=== PATIENT | male | born 1995 | race Two or more races ===

== ENCOUNTER 2022-05-09 21:48 | Emergency (ER) | payer SELFPAY ==
[2022-05-09 22:24] LABS: BASOPHILS # (AUTO) 0.1 10^3/uL (0.0-0.1); BASOPHILS % (AUTO) 0.7 %; EOSINOPHILS # (AUTO) 0.2 10^3/uL (0.0-0.7); EOSINOPHILS % (AUTO) 2.7 %; HCT - HEMATOCRIT 42.7 % (42.0-52.0); HGB - HEMOGLOBIN 15.7 g/dL (14.0-18.0); LYMPHOCYTES # (AUTO) 2.8 10^3/uL (1.5-3.5); LYMPHOCYTES % (AUTO) 34.7 %; MEAN CORPUSCULAR HEMOGLOBIN 31.6 pg (27.0-31.0); MEAN CORPUSCULAR HGB CONC 36.8 g/dL (32.0-36.0); MEAN CORPUSCULAR VOLUME 85.9 fL (80.0-94.0); MONOCYTES # (AUTO) 0.8 10^3/uL (0.0-1.0); MONOCYTES % (AUTO) 9.4 %; NEUTROPHILS # (AUTO) 4.2 10^3/uL (1.5-6.6); NEUTROPHILS % (AUTO) 52.3 %; PLT - PLATELET COUNT 230 10^3/uL (130-450); RED BLOOD COUNT 4.97 10^6/uL (4.70-6.10); RED CELL DISTRIBUTION WIDTH 11.9 % (12.0-15.0); WHITE BLOOD COUNT 8.1 x10^3/uL (4.8-10.8)
--- NOTE | 2022-05-09 22:36 | ED Physician Documentation ---
PD HPI ABD PAIN - Stated complaint Stated Complaint: ABD PX - Chief complaint Chief Complaint: Abd Pain - History obtained from History obtained from: Patient - History of Present Illness Timing - onset: How many weeks ago (2) Timing - details: Gradual onset, Waxing and waning Quality: Cramping Location: All over / everywhere Improved by: Other (nothing) Worsened by: Other (no exacerbating factors) Associated symptoms: Constipation. 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 patient c/o 2 weeks of generalized abdominal pain, episodic without apparent inciting, ex acerbating, or ameliorating factors. He feels he is constipated and says he has not had a BM in 2 weeks Review of Systems Constitutional: denies: Fever GI: reports: Abdominal Pain, Constipation. denies: Nausea, Vomiting, Diarrhea : denies: Dysuria Musculoskeletal: denies: Back pain PD PAST MEDICAL HISTORY - Past Medical History Past Medical History: No - Present Medications Home Medications: Ambulatory Orders Medication Instructions Recorded Confirmed Citalopram Hydrobromide [Celexa] 40 mg PO DAILY 05/09/22 05/09/22 Dicyclomine [Bentyl] 10 mg PO QID PRN #20 cap 05/10/22 - Allergies Allergies/Adverse Reactions: Allergies Allergy/AdvReac Type Severity Reaction Status Date / Time No Known Drug Allergies Allergy Verified 05/09/22 22:50 PD ED PE NORMAL - Vitals Vital signs reviewed: Yes - General General: Alert and oriented X 3, No acute distress (mostly NAD during H+P but has brief episodes ,lasting 5-10 seconds, of obvious painful discomfort ), Well developed/nourished - HEENT HEENT: Moist mucous membranes - Neck Neck: Supple, no meningeal sign - Cardiac Cardiac: RRR, No murmur - Respiratory Respiratory: No respiratory distress, Clear bilaterally - Abdomen Abdomen: Normal bowel sounds, Soft, Non distended, Other (mild/moderate TTP epigastrium and periumbilical region with voluntary guarding) - Back Back: No CVA TTP Results - Vitals Vitals: Oxygen O2 Source Room air - Labs Labs: Laboratory Tests 05/09/22 05/09/22 22:17 22:17 WBC 8.1 RBC 4.97 Hgb 15.7 Hct 42.7 MCV 85.9 MCH 31.6 H MCHC 36.8 H RDW 11.9 L Plt Count 230 MPV 10.0 Neut # (Auto) 4.2 Lymph # (Auto) 2.8 Terry # (Auto) 0.8 Eos # (Auto) 0.2 Baso # (Auto) 0.1 Absolute Nucleated RBC 0.00 Nucleated RBC % 0.0 Sodium 136 Potassium 3.6 Chloride 101 Carbon Dioxide 25 Anion Gap 10.0 BUN 20 Creatinine 1.1 Estimated GFR (MDRD) 81 L Glucose 104 H Calcium 9.2 Total Bilirubin 0.2 AST 28 ALT 32 Alkaline Phosphatase 88 Total Protein 7.6 Albumin 4.4 Globulin 3.2 Albumin/Globulin Ratio 1.4 Lipase 34 - Rads (name of study) upright cxr Radiology: Prelim report reviewed, See rad report CT A/P Radiology: Prelim report reviewed, See rad report PD MEDICAL DECISION MAKING - ED course Complexity details: reviewed results, re-evaluated patient, considered differential, d/w patient ED course: presents with episodic abdominal pain x 2 weeks. Unremarkable blood tests results and no concerning nor diagnostic findings on CT A/P. An upright CXR performed initially due to the degree of abdominal tenderness , looking for free air, but this study had no evidence of free air. He is given one liter NS bolus and 1mg IV dilaudid. On reevaluation, he is asleep, awakens to voice, in NAD. Reexamination of abdomen is benign; there is no tenderness on the reexam. He reports resolution of his discomfort. I explained that the cause of his pain is not apparent on tonkavita's tests, and the CT scan does not suggest that he is constipated. He is given a percocet take- home pack and rx bentyl provided. Departure - Departure Disposition: 01 Home, Self Care Clinical Impression: Abdominal pain Qualifiers: Abdominal location: generalized Qualified Code(s): R10.84 - Generalized abdominal pain Condition: Good Instructions: ED Abdominal Pain Unkn Cause Male Follow-Up: Parth Proctor MD [Provider Admit Priv/Credential] - Prescriptions: Dicyclomine [Bentyl] 10 mg PO QID PRN #20 cap PRN Reason: Abdominal Pain Print Language: Belarusian Comments: The results of tonight's tests are normal. The cause of your pain is not apparent at this time. Your CT scan does NOT suggest constipation. You are being provided with a prescription for bentyl ,which is a medication that can help with abdominal cramping/spasms. Please follow up with your doctor. If you do not have a doctor, you can use the information on these discharge sheets to contact the office of Dr. Proctor to arrange an appointment with them. Discharge Date/Time: 05/10/22 01:56
[2022-05-09 22:37] LABS: ALBUMIN 4.4 g/dL (3.2-5.5); ALBUMIN/GLOBULIN RATIO 1.4 (1.0-2.2); BILIRUBIN,TOTAL 0.2 mg/dL (0.2-1.0); CALCIUM 9.2 mg/dL (8.5-10.3); CREATININE 1.1 mg/dL (0.6-1.2); POTASSIUM 3.6 mmol/L (3.5-5.0); TOTAL PROTEIN 7.6 g/dL (6.7-8.2)
[2022-05-09] MEDS ORDERED: HYDROmorphone 1 MG/ML CARPUJECT IVP STA (22:37)
[2022-05-09] MEDS ORDERED: SODIUM CHLORIDE 0.9% 1,000 ML IV STA (22:37)
--- NOTE | 2022-05-09 23:11 | XRAY Report ---
PROCEDURE: Chest 1 View X-Ray INDICATIONS: abd. pain, peritoneal signs TECHNIQUE: One view of the chest was acquired. COMPARISON: None. FINDINGS: Surgical changes and devices: None. Lungs and pleura: No pleural effusions or pneumothorax. Lungs are clear. Mediastinum: Mediastinal contours appear normal. Heart size is normal. Bones and chest wall: No suspicious bony lesions. Overlying soft tissues appear unremarkable. IMPRESSION: 1. No acute cardiopulmonary disease. Reviewed by: Km Peacock MD on 05/09/2022 11:09 PM PDT Approved by: Km Peacock MD on 05/09/2022 11:09 PM PDT Station ID: [id number]
--- NOTE | 2022-05-09 23:15 | CT Report ---
PROCEDURE: Abdomen/Pelvis WO INDICATIONS: abdominal pain TECHNIQUE: Noncontrast 5 mm thick sections acquired from the diaphragms to the symphysis. 5 mm coronal and sagi ttal reformats were then performed. For radiation dose reduction, the following was used: automated exposure control, adjustment of mA and/or kV according to patient size. COMPARISON: None. FINDINGS: Image quality: Excellent. Lung bases: Unremarkable. Heart: Heart is normal in size. ABDOMEN: Liver:Noncontrast evaluation of the liver demonstrates no discrete mass. Gallbladder: Within normal limits without calcified gallstones. Biliary ducts: No biliary ductal dilatation. Pancreas: Unremarkable. Spleen: Normal in size. Adrenal Glands: No adrenal nodules. Kidneys and Ureters: No hydronephrosis. Stomach and Bowel: Stomach, small bowel loops, and colon are normal in caliber and wall thickness. T he appendix is normal in appearance. Peritoneum: No abnormal intraperitoneal fluid. No free air. Ventral Wall: No hernia. Abdominal Nodes: No retroperitoneal or mesenteric adenopathy by size criteria. Vessels: Aorta and inferior vena cava are normal in size. PELVIS: Pelvic Organs: Unremarkable. Bladder: Unremarkable. Pelvic Nodes: No enlarged lymph nodes. Miscellaneous: No inguinal hernias are seen. Bones: Visualized osseous structures demonstrate no suspicious focal lesions. IMPRESSION: 1. No definite acute intra-abdominal abnormality, with evaluation limited in the absence of intraveno us contrast. 2. Specifically, no evidence of appendicitis, nephrolithiasis, obstructive uropathy. No bowel obstruc tion. Reviewed by: Km Peacock MD on 05/09/2022 11:13 PM PDT Approved by: Km Peacock MD on 05/09/2022 11:13 PM PDT Station ID: [id number]
[2022-05-10 01:19] VITALS: BP 135/85
[2022-05-10] MEDS ORDERED: oxyCODONE/ACET 5/325 Prepack 4 PO STA (01:31)
== END 2022-05-10 01:56 | disposition home or self-care (01) ==
LOC: ED 21:48
DX: R10.84 Generalized abdominal pain (principal)
CPT/HCPCS: 36415; 71045; 74176; 80053; 83690; 85025; 96374; 99284; J1170

== ENCOUNTER 2023-08-30 18:01 | Emergency (ER) | payer OTHER ==
[2023-08-30 18:24] VITALS: BP 144/75; O2SAT 95
[2023-08-30] MEDS ORDERED: HYDROcod/ACETAM 5/325 MG TABLET PO STA (18:34)
[2023-08-30] MEDS ORDERED: IBUPROFEN 800 MG TABLET PO STA (18:34)
--- NOTE | 2023-08-30 18:36 | ED Physician Documentation ---
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 Pain is severe. PD PAST MEDICAL HISTORY - Past Medical History Cardiovascular: None Respiratory: None Neuro: None Endocrine/Autoimmune: None GI: Other : None HEENT: None Psych: Depression, Anxiety Musculoskeletal: None Derm: None - Past Surgical History Past Surgical History: No - Present Medications Home Medications: Ambulatory Orders Medication Instructions Recorded Confirmed Citalopram Hydrobromide [Celexa] 40 mg PO DAILY 05/09/22 05/09/22 Dicyclomine [Bentyl] 10 mg PO QID PRN #20 cap 05/10/22 Docusate Sodium 100Mg Capsule 100 mg PO DAILY #7 cap 07/06/22 [Colace 100Mg Capsule] - Allergies Allergies/Adverse Reactions: Allergies Allergy/AdvReac Type Severity Reaction Status Date / Time No Known Drug Allergies Allergy Verified 07/05/22 20:55 - Social History Does the pt smoke?: No Smoking Status: Never smoker Does the pt drink ETOH?: Yes Does the pt have substance abuse?: No - Immunizations Immunizations are current?: No - POLST Patient has POLST: No PD ED PE NORMAL - Vitals Vital signs reviewed: Yes - General General: Other (Overt active pain behavior and difficult to examine as he is pushing me away.) - Extremities Extremities: Other (Seemingly mostly tender at the fourth digit around the middle phalanx of the right hand, but also has some tenderness of the third and fifth digits as well. Possible mallet finger deformity of the fourth digit, no other deformity.) - Neuro Neuro: Alert and oriented X 3, Normal speech Results - Vitals Vitals: Vital Signs - 24 hr 08/30/23 18:18 Temperature 36.7 C Heart Rate 85 Respiratory 20 Rate Blood Pressure 144/75 H O2 Saturation 95 Oxygen O2 Source Room air - Rads (name of study) X-ray of the right hand demonstrating a nondisplaced tuft fracture of the fourth digit Relevant Findings:: Final report received, EMP independent interpretation of test Procedures - Splint (location) - Minor R 4th finger Splint applied by: Physician Type of splint: Metal foam finger splint Other: Patient tolerated well, No complications, Neurovascular intact PD Medical Decision Making - ED course Complexity details: other (L&I paperwork completed and submitted) Departure - Departure Disposition: 01 Home, Self Care Clinical Impression: Finger fracture, right Qualifiers: Encounter type: initial encounter Finger: ring finger Fracture type: closed Phalanx: distal Fracture alignment: nondisplaced Qualified Code(s): S62.664A - Nondisplaced fracture of distal phalanx of right ring finger, initial encounter for closed fracture Condition: Good Record reviewed to determine appropriate education?: Yes Instructions: ED Fx Finger Closed Follow-Up: [facility] [Provider Group] - Within 1 week Print Language: Kazakh Comments: You can remove splint briefly to wash your hands, but keep it on for the most part. Elevate is much as possible, Tylenol and/or ibuprofen for pain. Follow- up with the orthopedics clinic calling Saturday for an appointment. Puede quitarse la frula brevemente para lavarse las felix, enid djela puesta la mayor parte del tiempo. Elevar lo ms posible Tylenol y/o ibuprofeno para el dolor. Seguimiento con la clnica de ortopedia llamando el para concertar river shanelle. Forms: PCP List, Activity restrictions Discharge Date/Time: 08/30/23 19:16
[2023-08-30] MEDS ORDERED: HYDROcod/ACET 5/325 Prepack 4 PO STA (18:58)
--- NOTE | 2023-08-30 19:08 | XRAY Report ---
PROCEDURE: Hand 3 View RT INDICATIONS: hand inj TECHNIQUE: 6 views of the hand(s) acquired. COMPARISON: None. FINDINGS: Bones: Acute slightly comminuted fractures involving fourth distal phalangeal tuft is seen without s ignificant displacement. No suspicious bony lesions. Soft tissues: Soft tissue swelling surrounding distal fourth digit is seen. No suspicious soft tissue calcifications or masses. IMPRESSION: Acute nondisplaced and slightly comminuted fourth distal phalangeal tuft fracture. Reviewed by: Manjinder Banuelos MD on 08/30/2023 7:07 PM PDT Approved by: Manjinder Banuelos MD on 08/30/2023 7:07 PM PDT Station ID: [id number]
== END 2023-08-30 19:16 | disposition home or self-care (01) ==
LOC: ED 18:01
DX: S62.664A Nondisplaced fracture of distal phalanx of right ring finger, initial encounter for closed fracture (principal); W31.89XA Contact with other specified machinery, initial encounter; Y93.G1 Activity, food preparation and clean up; Y92.511 Restaurant or cafe as the place of occurrence of the external cause; Y99.0 Civilian activity done for income or pay
CPT/HCPCS: 1040M; 73130; 99283; A9270

== ENCOUNTER 2023-11-05 04:17 | Emergency (ER) | payer SELFPAY ==
[2023-11-05 04:54] VITALS: BP 136/70; O2SAT 99
[2023-11-05] MEDS ORDERED: KETOROLAC 30 MG/ML VIAL IM STA (05:16)
--- NOTE | 2023-11-05 05:26 | ED Physician Documentation ---
History of Present Illness - Stated complaint Stated Complaint: HEAD/L LEG PX - Chief complaint Chief Complaint: Abd Pain - History obtained from History obtained from: Patient - Additonal information Additional information: 28-year-old man with frequent ED visits for headache and right-sided sciatica presents with headache today radiating to the left eye upon waking an hour ago with associated nausea and pain radiating from the right buttock down the leg as well as constipation for the past 3 days. Patient denies fever, vision changes, vomiting, diarrhea. 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 - Past Surgical History Past Surgical History: No - Present Medications Home Medications: Ambulatory Orders Medication Instructions Recorded Confirmed Citalopram Hydrobromide [Celexa] 40 mg PO DAILY 05/09/22 11/05/23 Ketorolac [Toradol] 10 mg PO Q6H PRN #15 tablet 11/05/23 Sennosides/Docusate Sodium 1 each PO QDAC PRN #30 tablet 11/05/23 [Senna-Docusate Sodium Tablet] polyethylene glycoL 3350 [Miralax] 17 gm PO DAILY #15 packet 11/05/23 - Allergies Allergies/Adverse Reactions: Allergies Allergy/AdvReac Type Severity Reaction Status Date / Time No Known Drug Allergies Allergy Verified 11/05/23 04:50 - Social History Does the pt smoke?: No Smoking Status: Never smoker Does the pt drink ETOH?: Yes Does the pt have substance abuse?: No - Immunizations Immunizations are current?: No Immunizations: TDAP >10years/unknown - POLST Patient has POLST: No PD ED PE NORMAL - Vitals Vital signs reviewed: Yes - General General: Alert and oriented X 3, No acute distress, Well developed/nourished - HEENT HEENT: Atraumatic, PERRL, EOMI, Moist mucous membranes, Pharynx benign - Neck Neck: Supple, no meningeal sign - Cardiac Cardiac: RRR - Respiratory Respiratory: No respiratory distress, Clear bilaterally - Abdomen Abdomen: Non tender, Non distended - Back Back: No CVA TTP, No spinal TTP - Derm Derm: Normal color, Warm and dry - Extremities Extremities: No deformity - Neuro Neuro: Alert and oriented X 3 Results - Vitals Vitals: Vital Signs - 24 hr 11/05/23 04:35 Temperature 37.1 C Heart Rate 84 Respiratory 16 Rate Blood Pressure 136/70 H O2 Saturation 99 Oxygen O2 Source Room air PD Medical Decision Making - ED course ED course: 28-year-old man presents with multiple medical complaints including headache, constipation, sciatic pain. He has normal neurologic exam and headache and back pain improved status post IM Toradol injection here in the emergency department. Return precautions given. plan to f/u with pcp. Constipation and pain meds sent to pharmacy. Departure - Departure Disposition: Home, Self Care Clinical Impression: Constipation, Back pain, Sciatica Condition: Stable Instructions: Constipation, ED Sciatica Prescriptions: polyethylene glycoL 3350 [Miralax] 17 gm PO DAILY #15 packet Sennosides/Docusate Sodium [Senna-Docusate Sodium Tablet] 1 each PO QDAC PRN #30 tablet PRN Reason: Constipation Ketorolac [Toradol] 10 mg PO Q6H PRN #15 tablet PRN Reason: Pain Print Language: Mohawk Comments: You were seen in the emergency department for back pain, constipation and headache. Electronic prescriptions for pain medicine and constipation treatments were sent to [email or web address] in [place]. Please follow-up with your primary care provider and return to the emergency department if you have any new or worsening symptoms or other concerns. Fue atendido en urgencias por dolor de espalda, estreimiento y dolor de gina. Se enviaron recetas electrnicas para analgsicos y tratamientos para el estreimiento a [facility] en [place]. Gavi un seguimiento con gillespie proveedor de atencin primaria y regrese al departamento de emergencias si tiene algn sntoma nuevo o que empeora u otras inquietudes. Forms: PCP List, Activity restrictions Discharge Date/Time: 11/05/23 05:45
== END 2023-11-05 05:45 | disposition home or self-care (01) ==
LOC: ED 04:17
DX: R51.9 Headache, unspecified (principal); K59.00 Constipation, unspecified; M54.31 Sciatica, right side
CPT/HCPCS: 96372; 99283